=== PATIENT | female | born 1990 | race Caucasian/White ===

== ENCOUNTER 2019-02-27 12:52 | Outpatient (CLI) | payer BC, OTHER ==
[2019-02-27 13:42] LABS: BASOPHILS # (AUTO) 0.04 x10^3/uL (0-0.1); BASOPHILS % (AUTO) 1 % (0-1); EOSINOPHILS # (AUTO) 0.17 x10^3/uL (0-0.4); EOSINOPHILS % (AUTO) 2 % (1-7); LYMPHOCYTES # (AUTO) 3.24 x10^3/uL (1-3.4); LYMPHOCYTES % (AUTO) 36 % (22-44); MD NO; MEAN CORPUSCULAR HEMOGLOBIN 31.2 pg (27.0-34.8); MEAN CORPUSCULAR HGB CONC 33.6 g/dL (32.4-35.8); MEAN CORPUSCULAR VOLUME 92.9 fL (80-100); MEAN PLATELET VOLUME 8.3 fL (7.4-10.4); MONOCYTES # (AUTO) 0.58 x10^3/uL (0.2-0.8); MONOCYTES % (AUTO) 6 % (2-9); NEUTROPHILS # (AUTO) 5.07 x10^3/uL (1.8-6.8); NEUTROPHILS % (AUTO) 56 % (42-75); PLATELET COUNT 373 x10^3/uL (130-400); RED BLOOD COUNT 4.95 x10^6/uL (3.82-5.3); RED CELL DISTRIBUTION WIDTH 12.6 % (9.6-15.2)
[2019-02-27] MEDS ORDERED: None at this Time (14:01)
== END 2019-02-27 23:59 | disposition home or self-care (01) ==
LOC: STAR 12:52
PROVIDERS: ATTEND Obstetrics & Gynecology
DX: Z01.818 Encounter for other preprocedural examination (principal); N83.201 Unspecified ovarian cyst, right side
CPT/HCPCS: 36415; 84702; 85025

== ENCOUNTER 2019-03-05 08:01 | Day surgery (SDC) | payer BC ==
[~2019-03-05] VITALS: Ht 162.6 cm; Wt 103.8 kg
[~2019-03-05 08:01] MED LIST: BUPIVACAINE/PF 0.25% ONE; BUPIVACAINE/PF 0.5% ONE; EPINEPHRINE 1 MG/ML, 1ML ONE; None at this Time; SILVER NITRATE STICK TP ONE
[2019-03-05] MEDS ORDERED: LACTATED RINGERS 1,000 ML IV SCH (08:34)
[2019-03-05 08:56] VITALS: BP 132/87
[2019-03-05 08:56] LABS: HCG UR SG 1.022 (1.003-1.030)
[2019-03-05] MEDS ORDERED: FENTANYL PF 250 MCG/5ML ONE (09:27)
[2019-03-05] MEDS ORDERED: MIDAZOLAM 1 MG/ML, 2ML ONE (09:27)
[2019-03-05] MEDS ORDERED: MEPERIDINE/PF 25MG/0.5ML IVPush PRN (11:00)
[2019-03-05] MEDS ORDERED: OXYcodone 5 MG/5 ML ORAL.SOL UDC PO PRN (11:00)
[2019-03-05] MEDS ORDERED: PROMETHAZINE 25 MG/ML, 1ML IV PRN (11:00)
[2019-03-05] MEDS ORDERED: DIAZEPAM 5 MG/ML, 2ML IVPush PRN (11:00)
[2019-03-05] MEDS ORDERED: ACETAMINOPHEN 325 MG TABLET PO PRN (11:00)
[2019-03-05] MEDS ORDERED: hydrALAzine 20 MG/ML, 1ML IV PRN (11:00)
[2019-03-05] MEDS ORDERED: ALBUTEROL SULFATE 2.5 MG/3 ML NPPB PRN (11:00)
[2019-03-05] MEDS ORDERED: KETOROLAC 30 MG/1 ML IV PRN (11:00)
[2019-03-05] MEDS ORDERED: LABETALOL 5MG/ML, 20ML IV PRN (11:00)
[2019-03-05] MEDS ORDERED: HYDROmorphone 2 MG/ML, 1ML IVPush PRN (11:00)
[2019-03-05] MEDS ORDERED: GLYCOPYRROLATE 0.2MG/1ML, 5ML ONE (11:02)
[2019-03-05] MEDS ORDERED: ROCURONIUM 10MG/ML,5ML ONE (11:02)
[2019-03-05] MEDS ORDERED: CEFAZOLIN 1,000 MG ONE (11:02)
[2019-03-05] MEDS ORDERED: SUCCINYLCHOLINE 20 MG/ML, 10ML ONE (11:02)
[2019-03-05] MEDS ORDERED: NEOSTIGMINE 1 MG/ML, 10ML ONE (11:02)
[2019-03-05] MEDS ORDERED: ONDANSETRON 2MG/ML, 2ML ONE (11:02)
[2019-03-05] MEDS ORDERED: PROPOFOL 10 MG/ML, 20ML ONE (11:02)
[2019-03-05] MEDS ORDERED: DEXAMETHASONE 4 MG/ML, 1ML ONE (11:02)
[2019-03-05] MEDS ORDERED: MEPERIDINE/PF 25MG/ML,1ML ONE (11:39)
[2019-03-05] MEDS ORDERED: OXYcodone 5 MG/5 ML ORAL.SOL UDC ONE (11:52)
[2019-03-05] MEDS ORDERED: HYDROmorphone 2 MG/ML, 1ML ONE (11:59)
[2019-03-05] MEDS ORDERED: FENTANYL PF 100 MCG/2ML ONE (11:59)
[2019-03-05] MEDS: FENTANYL PF 100 MCG/2ML IV PRN ×3 (12:01→12:14)
== END 2019-03-05 13:45 | disposition home or self-care (01) ==
LOC: OUT 08:01 → MERGE 10:00 → OUT 13:45
PROVIDERS: ATTEND Obstetrics & Gynecology
DX: D27.0 Benign neoplasm of right ovary (principal); N83.11 Corpus luteum cyst of right ovary; N73.6 Female pelvic peritoneal adhesions (postinfective); N32.89 Other specified disorders of bladder; E66.9 Obesity, unspecified; Z88.0 Allergy status to penicillin; Z90.49 Acquired absence of other specified parts of digestive tract; Z98.51 Tubal ligation status; Z97.5 Presence of (intrauterine) contraceptive device; Z80.41 Family history of malignant neoplasm of ovary
CPT/HCPCS: 58661; 81025; 88305; J0171; J0330; J0690; J1100; J1170; J2250; J2405; J2704; J2710; J3010; J3490; J7120